=== PATIENT | female | born 1990 | race Caucasian/White ===

== ENCOUNTER 2016-10-02 19:31 | Emergency (ER) | payer BC ==
[~2016-10-02] VITALS: Ht 157.5 cm; Wt 66.2 kg
[2016-10-02 20:04] VITALS: BP 133/60
[2016-10-02] MEDS ORDERED: PENICILLIN G BENZATHINE 2.4 MMU/4 ML ML IM ONE (20:30)
== END 2016-10-02 20:51 | disposition home or self-care (01) ==
LOC: ER 19:35
DX: J02.0 Streptococcal pharyngitis (principal)
CPT/HCPCS: 99283; A4606; Z7610

== ENCOUNTER 2018-06-20 14:54 | Emergency (ER) | payer BC ==
[~2018-06-20] VITALS: Ht 157.5 cm; Wt 69.4 kg
[2018-06-20 15:05] VITALS: BP 114/69
== END 2018-06-20 16:35 | disposition home or self-care (01) ==
LOC: ER 14:55
DX: M25.531 Pain in right wrist (principal); Z39.1 Encounter for care and examination of lactating mother
CPT/HCPCS: 29125; 73110; 99283; A4606